=== PATIENT | female | born 1970 | race Caucasian/White ===

== ENCOUNTER 2023-01-13 11:36 | Emergency (ER) | payer OTHER ==
[~2023-01-13] VITALS: Ht 172.7 cm; Wt 123.4 kg
[~2023-01-13 11:36] MED LIST: LISI-486 PO
[2023-01-13 11:50] VITALS: BP 157/101
--- NOTE | 2023-01-13 12:05 | NUR ---
52/F PRESENTS TO ED WITH C/O LEFT LOWER LEG PAIN X2 WEEKS. PATIENT REPORTS SHE BEGAN NOTICING 3 NICKEL SIZE SORES THAT HAVE SINCE BECAME MORE PAINFUL AND TENDER. PATIENT REPORTS SHE WAS SEEN BY HER PCP FOR S/S AND WAS GIVEN BACTRIM WHICH SHE CLAIMS SHE IS STILL TAKING BUT HAS EXPERIENCED NO RELIF. DENIES DRAINAGE FROM SITES, DENIES FEVERS OR CHILLS.
[2023-01-13 13:09] LABS: BASOPHILS # (AUTO) 0.1 K/uL (0.00-0.22); BASOPHILS % (AUTO) 1.1 % (0.0-2.0); EOSINOPHILS # (AUTO) 0.1 K/uL (0-0.4); EOSINOPHILS % (AUTO) 1.1 % (0.0-4.0); HEMATOCRIT 40.7 % (36-48); HEMOGLOBIN 13.7 g/dL (12.0-16.0); LYMPHOCYTES # (AUTO) 3.3 K/uL (2.5-16.5); LYMPHOCYTES % (AUTO) 40.1 % (20.5-51.1); MEAN CORPUSCULAR HEMOGLOBIN 30 pg (27-31); MEAN CORPUSCULAR HGB CONC 34 g/dL (33-37); MEAN CORPUSCULAR VOLUME 88.8 fL (80-94); MONOCYTES # (AUTO) 0.5 K/uL (0.8-1.0); MONOCYTES % (AUTO) 6.4 % (1.7-9.3); NEUTROPHILS # (AUTO) 4.2 K/uL (1.8-7.7); NEUTROPHILS % (AUTO) 51.3 % (42.2-75.2); PLATELET COUNT (AUTO) 246 K/uL (140-450); RED BLOOD CELL COUNT(AUTO) 4.58 MIL/uL (4.20-5.40); RED CELL DISTRIBUTION WIDTH 13.6 % (11.6-13.7); WHITE BLOOD COUNT (AUTO) 8.3 K/uL (4.8-10.8)
[2023-01-13 13:27] LABS: ALBUMIN 4.1 g/dL (3.4-5.0); ANION GAP 11.6 (8-16); CARBON DIOXIDE 27.6 mmol/L (21-32); CREATININE 0.6 mg/dL (0.6-1.3); POTASSIUM 4.2 mmol/L (3.5-5.1); TOTAL BILIRUBIN 0.5 mg/dL (0.0-1.0)
[2023-01-13 13:28] LABS: APPEARANCE,URINE CLEAR (CLEAR); BILIRUBIN,URINE NEGATIVE (NEGATIVE); BLOOD, URINE NEGATIVE (NEGATIVE); COLOR,URINE YELLOW (YELLOW); LEUKOCYTE ESTERASE ,URINE NEGATIVE (NEGATIVE); NITRITE, URINE NEGATIVE (NEGATIVE); UGLUCOSE NEGATIVE (NEGATIVE)
[2023-01-13] MEDS ORDERED: predniSONE 20 MG TAB PO ONE ×2 (13:40→13:45)
[2023-01-13] MEDS ORDERED: PRED20TA5 PO (13:42)
[2023-01-13 15:17] VITALS: BP 139/83
--- NOTE | 2023-01-13 15:17 | NUR ---
Patient discharged with v/s stable. Written and verbal after care instructions ABOUT HENO[facility]-SCHONLEIN [facility]PURA given and explained. Patient alert, oriented and verbalized understanding of instructions. Ambulatory with steady gait. All questions addressed prior to discharge. ID band removed. Patient advised to follow up with PMD. Rx of PREDNISONE given. Patient educated on indication of medication including possible reaction and side effects. Opportunity to ask questions provided and answered.
== END 2023-01-13 15:17 | disposition home or self-care (01) ==
LOC: MED 11:36
DX: D69.0 Allergic purpura (principal); Z79.899 Other long term (current) drug therapy
CPT/HCPCS: 36415; 80053; 81003; 81025; 85025; 99283; J7512